=== PATIENT | female | born 1995 | race African-American/Black ===

== ENCOUNTER 2017-03-31 11:47 | Emergency (ER) | payer MEDICAID ==
[~2017-03-31] VITALS: Ht 170.2 cm; Wt 52.2 kg
[2017-03-31 11:59] VITALS: BP 118/65
== END 2017-03-31 13:39 | disposition home or self-care (01) ==
LOC: ER 11:47
DX: S63.601A Unspecified sprain of right thumb, initial encounter (principal); X50.1XXA Overexertion from prolonged static or awkward postures, initial encounter; Y93.89 Activity, other specified; Y92.89 Other specified places as the place of occurrence of the external cause; Y99.8 Other external cause status
CPT/HCPCS: 29125; 73130